=== PATIENT | female | born 1940 | race Two or more races ===

== ENCOUNTER 2022-06-23 23:55 | Inpatient (IN) | payer MEDICARE, BC ==
[~2022-06-23] VITALS: Ht 160 cm; Wt 49.9 kg
--- NOTE | 2022-06-24 00:01 | NUR ---
[id number] FROM HOME C/O R HIP PAIN S/P MECH FALL. PATIENT IS AAOX4. ABLE TO MAKE NEEDS KNOWN. POSITIONED COMFORTABLY IN BED. VITALS CHECKED.
--- NOTE | 2022-06-24 00:21 | NUR ---
BROUGHT TO CT DEPT
--- NOTE | 2022-06-24 01:00 | NUR ---
IFC F16 INSERTED. DRAINING TO LIGHT YELLOW URINE.
--- NOTE | 2022-06-24 01:07 | NUR ---
lenora delgado: [phone]
--- NOTE | 2022-06-24 01:35 | NUR ---
IV CANNULA G20 INSERTED ON LEFT FA.
--- NOTE | 2022-06-24 01:42 | NUR ---
BROUGHT TO CT DEPT.
--- NOTE | 2022-06-24 01:50 | NUR ---
CAME BACK FROM CT SCAN
--- NOTE | 2022-06-24 04:12 | NUR ---
GRIFFIN [phone]. PLS CALL FOR UPDATES.
--- NOTE | 2022-06-24 04:15 | NUR ---
COVID SWAB DONE AND SENT TO LAB
--- NOTE | 2022-06-24 04:19 | NUR ---
REPORT GIVEN TO YULI BROWN. LABS FF UP FOR BLOOD DRAW.
--- NOTE | 2022-06-24 04:51 | NUR ---
BLOOD DRAWN DONE BY PARKING ENFORCEMENT SPECIALIST
[2022-06-24 05:16] LABS: BASOPHILS % (AUTO) 0.4 % (0.0-2.0); EOSINOPHILS % (AUTO) 0.8 % (0.0-6.0); HEMATOCRIT 35 % (33-45); HEMOGLOBIN 11.5 g/dL (11.5-14.8); LYMPHOCYTES # (AUTO) 0.9 K/uL (0.8-4.8); LYMPHOCYTES % (AUTO) 8.7 % (20.0-44.0); MEAN CORPUSCULAR HGB CONC 33 g/dl (31.0-36.0); MEAN CORPUSCULAR VOLUME 83 fL (82-100); MONOCYTES # (AUTO) 0.9 K/uL (0.1-1.30); MONOCYTES % (AUTO) 8.6 % (2.0-12.0); NEUTROPHILS # (AUTO) 8.2 K/uL (1.8-8.9); NEUTROPHILS % (AUTO) 81.5 % (43.0-81.0); PLATELET COUNT (AUTO) 258 K/uL (150-450); RED BLOOD CELL COUNT(AUTO) 4.21 MIL/uL (4.0-5.2); WHITE BLOOD COUNT (AUTO) 10.1 K/uL (4.3-11.0)
[2022-06-24] MEDS ORDERED: ONDANSETRON HCL/PF 4 MG/2 ML VIAL ONE (05:24)
[2022-06-24] MEDS ORDERED: MORPHINE SULFATE INJ 2 MG/ML DISP.SYRIN ONE (05:25)
[2022-06-24 05:26] LABS: CARBON DIOXIDE 29 mmol/L (21-32); CHLORIDE 103 mmol/L (98-107); CREATININE 0.5 mg/dL (0.6-1.3); GLUCOSE 113 mg/dL (74-106); POTASSIUM 3.4 mmol/L (3.5-5.1); SODIUM SERUM 139 mmol/L (136-145); UREA NITROGEN, BLOOD 13 mg/dL (7-18)
[2022-06-24] MEDS ORDERED: MORPHINE SULFATE INJ 2 MG/ML DISP.SYRIN IV ONE (05:30)
[2022-06-24] MEDS ORDERED: ONDANSETRON HCL/PF 4 MG/2 ML VIAL IV ONE (05:30)
--- NOTE | 2022-06-24 05:35 | NUR ---
PER PATIENT, IT IS OK TO GIVE UPDATE FOR DAUGHTERS MARK AND GRIFFIN.
--- NOTE | 2022-06-24 05:47 | NUR ---
DR TAYLOR ON THE PHONE WITH DR DODSON FOR ORTHO CONSULT
[2022-06-24] MEDS ORDERED: Z GUARD REMEDY 4 OZ OINT TP PRN (06:00)
[2022-06-24] MEDS ORDERED: POTASSIUM CHLORIDE 20 MEQ TAB.PRT.SR PO ONE (06:00)
[2022-06-24] MEDS ORDERED: ONDANSETRON HCL/PF 4 MG/2 ML VIAL IVP PRN (06:00)
[2022-06-24] MEDS ORDERED: MAGNESIUM HYDROXIDE 30 ML UDC PO PRN (06:00)
[2022-06-24] MEDS ORDERED: ZOLPIDEM TARTRATE 5 MG TABLET PO PRN (06:00)
[2022-06-24] MEDS ORDERED: ACETAMINOPHEN 325 MG TABLET PO PRN (06:00)
[2022-06-24] MEDS ORDERED: MORPHINE SULFATE INJ 2 MG/ML DISP.SYRIN IV PRN (06:00)
[2022-06-24] MEDS ORDERED: MAG HYDROX/AL HYDROX/SIMETH 30 ML UDC PO PRN (06:00)
--- NOTE | 2022-06-24 06:18 | NUR ---
TRANSFERRED PATIENT TO ROOM
[2022-06-24 07:15] LABS: THYROID STIMULATING HORMONE 0.866 uIU/mL (0.358-3.74)
[2022-06-24] MEDS ORDERED: FLUT1DIS5 INH (07:29)
[2022-06-24] MEDS ORDERED: PANT40TA2 PO (07:29)
[2022-06-24] MEDS ORDERED: MONT10TA22 PO (07:29)
[2022-06-24] MEDS ORDERED: METO25TA4 PO (07:29)
[2022-06-24 08:00] VITALS: BP 120/66
[2022-06-24] MEDS ORDERED: PANTOPRAZOLE 40 MG VIAL IV SCH (09:00)
[2022-06-24] MEDS ORDERED: LORA10TA7 PO (09:02)
[2022-06-24] MEDS ORDERED: METO25TA6 PO (09:02)
[2022-06-24] MEDS ORDERED: ALBU8.5H8 IH (09:04)
[2022-06-24] MEDS: MONTELUKAST SODIUM (10MG) 10 MG TABLET PO SCH (09:33)
[2022-06-24] MEDS: PANTOPRAZOLE 40 MG TABLET.DR PO SCH (09:33)
[2022-06-24] MEDS: METOPROLOL SUCCINATE 25 MG TAB.SR.24H PO SCH (09:35)
[2022-06-24] MEDS: FLUTICASONE/VILANTEROL 1 EACH BLST.W.DEV IH SCH (12:00)
[2022-06-24 16:00] VITALS: BP 130/69
[2022-06-24] MEDS: HYDROCODONE/APAP 5/325MG TABLET PO PRN (16:01)
--- NOTE | 2022-06-24 19:15 | NUR ---
RN CLOSING NOTE PATIENT RECEIVED IN BED AND AWAKE. A/O X4 AND ABLE TO VERBALIZE ALL NEEDS. IV ACCESS INTACT AND PATENT. NO S/SX OF RESPIRATORY DISTRESS. PATIENT C/O OF DISCOMFORT AND PAIN TO AFFECTED RIGHT HIP. RECEIVED PRN TYLENOL @ 0940 AND WELL NORCO @ 1600. TOLERATED BOTH WELL. PRINCE CATHETER INTACT AND DRAINING CLEAR, YELLOW URINE. PATIENT AWAITING POSSIBLE TRANSFER TO [facility]. SAFETY MEASURES INTACT WITH BED LOW AND NYLA. CALL LIGGHT WITHIN REACH. WILL CONT TO MONITOR.
--- NOTE | 2022-06-24 19:30 | NUR ---
MS RN OPENING NOTE RECEIVED PATIENT IN BED, WITH HOB ELEVATED, ALERT AND ORIENTED X 4, WITH DAUGHTER AT BEDSIDE. AFEBRILE AND NOT IN ANY FORM OF ACUTE DISTRESS. BREATHING EVEN AND NON LABORED. NO C/O PAIN OR DISCOMFORT AT THIS TIME. WITH IV ACCESS ON LFA 20G SL. WITH INTACT PRINCE CATHETER, DRAINING WELL WITH YELLOW URINE OUTPUT. SAFETY MEASURES IN PLACE. KEPT BED IN LOCKED AND IN LOW POSITION. SIDE RAILS UP X2. ADVISED TO USE THE CALL LIGHT WHEN IN NEED OF ASSISTANCE.
[2022-06-24 20:00] VITALS: BP 105/43
--- NOTE | 2022-06-24 22:20 | NUR ---
MS RN NOTE RECEIVED A CALL FROM AMLAZ OF ADMISSION DEPARTMENT IN [facility] AND SAID THAT THEY ALREADY REACHED THEIR MAXIMUM CAPACITY AND CAN'T ACCOMMODATE THE PATIENT AT THIS TIME. NOTIFIED CHARGE NURSE ABOUT THE SITUATION.
[2022-06-25] MEDS: HYDROCODONE/APAP 5/325MG TABLET PO PRN ×2 (05:31→14:32)
[2022-06-25 06:20] LABS: BASOPHILS % (AUTO) 0.5 % (0.0-2.0); EOSINOPHILS % (AUTO) 1.3 % (0.0-6.0); HEMATOCRIT 35 % (33-45); HEMOGLOBIN 11.3 g/dL (11.5-14.8); LYMPHOCYTES # (AUTO) 1.3 K/uL (0.8-4.8); LYMPHOCYTES % (AUTO) 15.7 % (20.0-44.0); MEAN CORPUSCULAR HGB CONC 33 g/dl (31.0-36.0); MEAN CORPUSCULAR VOLUME 84 fL (82-100); MONOCYTES # (AUTO) 0.8 K/uL (0.1-1.30); MONOCYTES % (AUTO) 9.2 % (2.0-12.0); NEUTROPHILS % (AUTO) 73.3 % (43.0-81.0); PLATELET COUNT (AUTO) 247 K/uL (150-450); RED BLOOD CELL COUNT(AUTO) 4.15 MIL/uL (4.0-5.2); WHITE BLOOD COUNT (AUTO) 8.2 K/uL (4.3-11.0)
[2022-06-25 06:29] LABS: ALANINE AMINOTRANSFERASE 15 U/L (12-78); ALBUMIN 2.4 g/dL (3.4-5.0); ALKALINE PHOSPHATASE 80 U/L (46-116); ASPARTATE AMINOTRANSFERASE 17 U/L (15-37); BILIRUBIN,TOTAL 0.4 mg/dL (0.2-1.0); CALCIUM, SERUM 8.3 mg/dL (8.5-10.1); CARBON DIOXIDE 31 mmol/L (21-32); CHLORIDE 104 mmol/L (98-107); CREATININE 0.5 mg/dL (0.6-1.3); GLUCOSE 105 mg/dL (74-106); MAGNESIUM 2.1 mg/dL (1.8-2.4); PHOSPHORUS 3.3 mg/dL (2.5-4.9); POTASSIUM 4.1 mmol/L (3.5-5.1); SODIUM SERUM 139 mmol/L (136-145); TOTAL PROTEIN, SERUM 6.4 g/dL (6.4-8.2); UREA NITROGEN, BLOOD 14 mg/dL (7-18)
--- NOTE | 2022-06-25 06:45 | NUR ---
MS RN CLOSING NOTES PATIENT IN BED, WITH HOB ELEVATED, ASLEEP BUT EASY TO AROUSE AND RESPONSIVE. ABLE TO MAKE NEEDS KNOWN. AFEBRILE AND NOT IN ANY FORM OF ACUTE DISTRESS. BREATHING EVEN AND NON LABORED. MEDICATED ORDERED. WITH IV ACCESS ON LFA 20G SL. WITH INTACT PRINCE CATHETER, DRAINING WELL WITH YELLOW URINE OUTPUT, NO HEMATURIA OR SEDIMENTS NOTED. SAFETY MEASURES IN PLACE. KEPT BED IN LOCKED AND IN LOW POSITION. SIDE RAILS UP X2. ADVISED TO USE THE CALL LIGHT WHEN IN NEED OF ASSISTANCE. ALL NURSING NEEDS ATTENDED. ENDORSED TO INCOMING SHIFT FOR CONTINUITY OF CARE.
--- NOTE | 2022-06-25 07:30 | NUR ---
RN MS NOTES PT IN BED, ASLEEP, EASY TO AROUSE, ALERT AND ORIENTED, NO COMPLAINT OF PAIN AT THIS TIME, BREATHING PATTERN NORMAL, CALL LIGHT WITHIN REACH.
[2022-06-25 08:00] VITALS: BP 101/45
[2022-06-25] MEDS: MONTELUKAST SODIUM (10MG) 10 MG TABLET PO SCH (08:11)
[2022-06-25] MEDS: PANTOPRAZOLE 40 MG TABLET.DR PO SCH (08:11)
[2022-06-25 08:23] VITALS: BP 101/45
[2022-06-25] MEDS: METOPROLOL SUCCINATE 25 MG TAB.SR.24H PO SCH (08:23)
[2022-06-25] MEDS: FLUTICASONE/VILANTEROL 1 EACH BLST.W.DEV IH SCH (09:52)
--- NOTE | 2022-06-25 15:10 | NUR ---
RN MS NOTES PT IN BED, AWAKE, ALERT AND ORIENTED, PAIN MEDICATIONS GIVEN FOR PAIN MANAGEMENT, NOT IN DISTRESS, TOLERATES ROOM AIR, ASSISTED WITH NEEDS, SEEN BY DR. SHARP, DISCHARGE/TRANSFER ORDER GIVEN, PT FOR LATERAL TRANSFER TO [facility] PER PT'S FAMILY'S REQUEST FOR POSSIBLE RIGHT HIP SURGERY, REPORT GIVEN TO JAYDE ROLDAN, BELONGINGS ACCOUNTED FOR, F/C DRAINING WELL WITH CLEAR, YELLOW URINE, TRANSFER PAPERS SIGNED BY PT, PICKED UP BY 2 AMBULANCE PERSONNEL, LEFT VIA GUERNEY WITH ALL BELONGINGS IN STABLE CONDITION, ACCOMPANIED BY DAUGHTER
== END 2022-06-25 15:03 | disposition short-term general hospital (02) | DRG 536 ==
LOC: ER 23:55 → MED 06-24 04:07
PROVIDERS: ADMIT Nurse Practitioner Acute Care; ATTEND Internal Medicine
DX: S72.144A Nondisplaced intertrochanteric fracture of right femur, initial encounter for closed fracture (principal); W01.0XXA Fall on same level from slipping, tripping and stumbling without subsequent striking against object, initial encounter; Y92.89 Other specified places as the place of occurrence of the external cause; Z20.822 Contact with and (suspected) exposure to COVID-19; I10 Essential (primary) hypertension; J45.909 Unspecified asthma, uncomplicated; M19.90 Unspecified osteoarthritis, unspecified site; Z79.51 Long term (current) use of inhaled steroids; Z79.899 Other long term (current) drug therapy; Z86.73 Personal history of transient ischemic attack (TIA), and cerebral infarction without residual deficits; Z87.891 Personal history of nicotine dependence; Z87.09 Personal history of other diseases of the respiratory system
CPT/HCPCS: 36415; 70450-TC; 71045-TC; 73502; 73552; 73700-TC; 80048-TC; 80053-TC; 80061-TC; 83735-TC; 84100-TC; 84443-TC; 85025-TC; 85730-TC; 86850-TC; 87081-TC; 93307-TC; G0378; J2270; J2405